=== PATIENT | female | born 1980 | race Caucasian/White ===

== ENCOUNTER 2023-07-06 14:06 | Emergency (ER) | payer OTHER, SELFPAY ==
--- NOTE | 2023-07-06 14:30 | XR_ITS ---
FINAL REPORT CLINICAL HISTORY: FALL AT WORK FINDINGS: 3 views of the left knee were obtained. There is a nondisplaced fracture of the inferior pole of the patella. There is no dislocation. The joint spaces are intact. There is no soft tissue abnormality. IMPRESSION: Nondisplaced fracture of the inferior pole of the patella. Reviewed, Interpreted and Dictated by Pio Harrison III, MD Transcribed by Pradeep Mcpherson Authenticated and [facility]
[2023-07-06 14:35] VITALS: BP 144/87; PULSE 110; RESP 19; TEMP 36.6; O2SAT 98; BMI 30.9
--- NOTE | 2023-07-06 14:57 | EXP.UTC ---
Discharge Plan Disposition Patient Disposition: Home, Self-Care Condition: Good Prescriptions Prescriptions: New ibuprofen 600 mg tablet 600 mg PO Q6HP PRN (Reason: Moderate Pain) Qty: 20 0RF No Action citalopram 20 mg tablet 20 mg PO DAILY Patient Comments: TAKE 1 TABLET BY MOUTH IN THE MORNING omeprazole 20 mg capsule,delayed release(DR/EC) 20 mg PO DAILY Patient Comments: TAKE 1 CAPSULE BY MOUTH IN THE MORNING estradiol 2 mg tablet 2 mg PO DAILY Patient Comments: TAKE 1 TABLET BY MOUTH IN THE MORNING montelukast 10 mg tablet 10 mg PO DAILY Patient Comments: TAKE 1 TABLET BY MOUTH NIGHTLY lisinopril 40 mg tablet 40 mg PO DAILY Patient Comments: TAKE 1 TABLET BY MOUTH IN THE MORNING Referrals Follow up/Referrals: Khoa Viveros [Referring] - See instructions (call office for appointment ) Provider,MD Brisa [Primary Care Provider] - See instructions Activity Restrictions/Add. Instructions Additional Instructions/Restrictions: Follow up with [facility] as you requested call office for appoitment You may also call orthopedics if you have trouble getting in *No weight bearing Use crutches to get around *RICE, Rest the extremity, Ice 15-20 minutes 3-4 times daily, Compress- wear the marivel wrap as discussed as much as possible to help reduce swelling and pain, Elevate the extremity when at rest *Knee immobilizer is for support and help control swelling, and keep knee hu Be sure that is not to tight but not to loose either *Elevate when resting? *Ibuprofen 600-800mg every 6-8 hours as needed for pain an inflammation. If need something more can take Tylenol in between doses of Ibuprofen to help Immediately follow up with your family doctor for new or worsening of symptoms, or no noticeable improvement over the next 3-5 days Clinical Impressions Clinical Impression: Fracture, patella Qualifiers: Encounter type: initial encounter Fracture type: closed Fracture morphology: unspecified fracture morphology Fracture alignment: nondisplaced Laterality: left Qualified Code(s): S82.002A - Unspecified fracture of left patella, initial encounter for closed fracture Instructions Patient Instructions: Patella Fracture, DI for Patella Fracture Discharge ED Provider: Keyla Murphy [facility] General Stated complaint: [id number] Left Knee injury Mode of Arrival: Ambulatory Source of Information: Patient Limitations: No Limitations Time Seen by Provider: 07/06/23 14:57 Description of Symptoms (Recalled from Triage Doc. by RN): PATIENT C/O LEFT KNEE PAIN AFTER FALLING WHILE WALKING TO HER CAR TODAY HEENT Symptoms (Recalled from RN notes): No Resp Symptoms (Recalled from RN notes): No Skin Symptoms (Recalled from RN notes): No MS Symptoms (Recalled from RN notes): Yes Functional Status (Recalled from RN notes): WNL History of Present Illness Provider Complaint: Patient states that she was walking to her car to go out on a call when she fell and landed on her left knee States that she has been having pain and swelling in her knee since and hurts when she walks on it Related Data Home Medications Medication Instructions Recorded Confirmed citalopram 20 mg tablet 20 mg PO DAILY . 07/06/23 07/06/23 estradiol 2 mg tablet 2 mg PO DAILY Supplement 07/06/23 07/06/23 lisinopril 40 mg tablet 40 mg PO DAILY Hypertension 07/06/23 07/06/23 montelukast 10 mg tablet 10 mg PO DAILY Allergy Symptoms 07/06/23 07/06/23 omeprazole 20 mg capsule,delayed 20 mg PO DAILY GERD 07/06/23 07/06/23 release Previous Rx's Medication Instructions Recorded ibuprofen 600 mg tablet 600 mg PO Q6HP PRN Moderate Pain 07/06/23 #20 tabs Allergies Allergy/AdvReac Type Severity Reaction Status Date / Time No Known Allergies Allergy Verified 07/06/23 14:44 Worker's Comp Is this a Worker's Comp case?: No [facility] Disclaimer: The
[2023-07-06 15:56] VITALS: BP 144/87; PULSE 110; RESP 19; TEMP 36.6; O2SAT 98
== END 2023-07-06 16:41 | disposition home or self-care (01) ==
PROVIDERS: Emergency Provider Nurse Practitioner
DX: S82.035A Nondisplaced transverse fracture of left patella, initial encounter for closed fracture (principal); I10 Essential (primary) hypertension; F41.9 Anxiety disorder, unspecified; W01.10XA Fall on same level from slipping, tripping and stumbling with subsequent striking against unspecified object, initial encounter
CPT/HCPCS: 73562; 99204; 99212; G0463